=== PATIENT | female | born 1960 | race Caucasian/White ===

== ENCOUNTER 2023-10-22 13:07 | Outpatient (CLI) | payer BC, SELFPAY ==
--- NOTE | ~2023-10-22 | CT_ITS ---
EXAMINATION: CT lung screening DATE: 10/22/2023 13:25 INDICATION: Personal hx of nicotine dependence TECHNIQUE: Computed tomography (CT) of the chest was performed without intravenous contrast. Addition al 3D reconstructions utilizing coronal maximum intensity projection (MIP) were performed. Automated exposure control and iterative reconstruction technique were employed. The dose-length product was 29 3.80 mGy-cm. COMPARISON: None FINDINGS: Mild emphysema. There are 3 small calcified nodules in the left upper lobe along with calcified AP wi ndow lymph node consistent with old granulomatous disease. No other suspicious pulmonary nodes, pneum onia, pulmonary edema or pleural effusion. Heart size normal. No pericardial effusion. Thoracic aorta is normal in caliber. No pathologically enlarged thoracic lymphadenopathy. 2.3 cm low-attenuation le ft adrenal adenoma. Moderate thoracic spondylosis. IMPRESSION: 1. Lung-RADS category 1: Negative. Continue annual screening with noncontrast low-dose chest CT in 12 months. Reviewed, dictated and finalized at location A. IMPRESSION: 1. Lung-RADS category 1: Negative. Continue annual screening with noncontrast l ow-dose chest CT in 12 months.
== END 2023-10-22 13:08 ==
PROVIDERS: PCP Family Medicine; Visit Provider Family Medicine
DX: Z12.2 Encounter for screening for malignant neoplasm of respiratory organs (principal); Z87.891 Personal history of nicotine dependence
CPT/HCPCS: 71271